=== PATIENT | female | born 2000 | race Caucasian/White ===

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

== ENCOUNTER 2022-01-10 11:05 | Outpatient (CLI) | payer OTHER, SELFPAY ==
--- NOTE | 2022-01-10 11:31 | XR_ITS ---
WS: [id number] CERVICAL SPINE 3 VIEWS HISTORY: CERVICALGIA/INJURY OF HEAD COMPARISON: None available. Normal cervical alignment with no fracture or destructive process. Disc spaces and vertebral body heights are well-maintained. Lateral masses are aligned. The odontoid is only partially visualized but appears normal. Soft tissue artifact is present. This may be part of the patient's clothing. XR/XR cervical spine 3V* [id number] IMPRESSION: 1. No cervical spine fracture identified. 2. If pain continues consider CT evaluation of the cervical spine to evaluate for occult fracture.
== END 2022-01-10 11:06 | disposition home or self-care (01) ==
PROVIDERS: PCP Family Medicine; Visit Provider Family Medicine
DX: S09.90XA Unspecified injury of head, initial encounter (principal); M54.2 Cervicalgia
CPT/HCPCS: 72040

== ENCOUNTER → 2023-03-23 13:24 | Outpatient (BNVA) | payer OTHER, SELFPAY | PROVIDERS: PCP Family Medicine; Visit Provider Nurse Practitioner Family | DX: J02.9 Acute pharyngitis, unspecified (principal) | CPT/HCPCS: 87880 ==

== ENCOUNTER 2023-06-12 03:38 | Outpatient (CLI) | payer OTHER, SELFPAY | END 2023-06-12 03:39 | disposition home or self-care (01) | LOC: SLEEP 03:39 | PROVIDERS: PCP Family Medicine; Visit Provider Specialist | DX: G47.19 Other hypersomnia (principal); J03.81 Acute recurrent tonsillitis due to other specified organisms; R06.83 Snoring; G47.33 Obstructive sleep apnea (adult) (pediatric) | CPT/HCPCS: 95810 ==